=== PATIENT | female | born 1940 ===

== ENCOUNTER 2020-08-19 07:15 | Inpatient (IN) | payer OTHER ==
[~2020-08-19] VITALS: Ht 154.9 cm; Wt 72.6 kg
[2020-08-19] MEDS ORDERED: DETROL1 MG PO (10:17)
[2020-08-19] MEDS ORDERED: MAXIDE PO (10:17)
[2020-08-19] MEDS ORDERED: CALTRATE 600 +1 EACH PO (10:18)
[2020-08-19] MEDS ORDERED: FIORECET (10:18)
[2020-08-19] MEDS ORDERED: VITAMIN C100 MG PO (10:19)
[2020-08-19] MEDS ORDERED: CENTRUM SILVER1 EAC2 PO (10:19)
[2020-08-27] MEDS ORDERED: TRAM1TAB98 (08:49)
[2020-08-27] MEDS ORDERED: BUTALB-ACETAMI1 EAC2 (08:49)
[2020-08-27] MEDS ORDERED: CENTRUM SILVER1 EAC3 (08:49)
[2020-08-27] MEDS ORDERED: TRIAMTERENE-HC1 EAC1 (08:50)
[2020-08-28] MEDS ORDERED: XARELTO10 MG PO (06:34)
[2020-08-28] MEDS ORDERED: INTEGRA PLUS C1 EACH PO (06:34)
[2020-08-28] MEDS ORDERED: OXYC1TAB9 PO (06:34)
[2020-08-28] MEDS ORDERED: BACTRIM 400-801 EACH PO (06:34)
== END 2020-08-28 13:00 | DRG 470 ==
LOC: O/R 08-26 06:58 → SURG 08-26 06:58 → SURH 08-26 07:15 → SURG 08-26 15:32
PROVIDERS: ADMIT Orthopaedic Surgery Sports Medicine; ATTEND Orthopaedic Surgery Sports Medicine
PROC: 0SRB02Z Replacement of Left Hip Joint with Metal on Polyethylene Synthetic Substitute, Open Approach (ICD-10-PCS; principal; 2020-08-26 09:00)
DX: M16.12 Unilateral primary osteoarthritis, left hip (principal); Z20.828 Contact with and (suspected) exposure to other viral communicable diseases